=== PATIENT | male | born 1960 | race Caucasian/White ===

== ENCOUNTER 2017-06-11 21:49 | Emergency (ER) | payer BC ==
--- NOTE | 2017-06-11 22:25 | Emergency Department Record ---
History of Present Illness - General Chief Complaint: Laceration(s) Stated Complaint: LACERATION ON INDEX FINGER,RT HAND Time Seen by Provider: 06/11/17 22:19 Source: Patient Mode of Arrival: Ambulatory Limitations: No limitations - History of Present Illness Initial Commments: 57 yo male presents to ED with a CC of injury to the right index finger while using hedge trimmers approximately 7 hours ago. Patient reports that he initially bandaged the finger wound following injury, but upon performing a dressing change tonight, wound was noted to be continuosly bleeding. Patient denies anticoagulation use and denies health problems at his baseline. Onset/Timin -: Hour(s) Extremity Location: Right: Hand Place: Outdoors Context: Accidental, Sharp object use Associated Symptoms: None - Drainel Coma Scale Eye Response: (4) Open spontaneously Motor Response: (6) Obeys commands Verbal Response: (5) Oriented [place] Total: 15 - Related Data Hx Tetanus Toxoid Vaccination: Yes Patient Tetanus UTD (within 5 yrs): No Previous Rx's Medication Instructions Recorded Cephalexin [Keflex] 500 mg PO QID #40 cap 06/11/17 Allergies Allergy/AdvReac Type Severity Reaction Status Date / Time No Known Drug Allergies Allergy Verified 06/11/17 21:57 Travel Screening - Travel/Exposure Within Last 30 Days Have you traveled within the last 30 days?: No Review of Systems Constitutional: Denies: Chills, Fever, Malaise, Night sweats Eyes: Denies: Eye discharge, Eye pain ENT: Denies: Congestion, Ear pain, Epistaxis Respiratory: Denies: Cough, Dyspnea Cardiovascular: Denies: Chest pain, Dyspnea on exertion Endocrine: Denies: Fatigue, Heat or cold intolerance Gastrointestinal: Denies: Abdominal pain, Nausea, Vomiting Genitourinary: Denies: Incontinence, Retention Musculoskeletal: Denies: Arthralgia, Back pain, Gout, Joint swelling Skin: Reports: Other (finger tip laceration to the right index finger). Denies : Bruising, Change in color, Change in hair/nails Neurological: Denies: Abnormal gait, Confusion, Headache, Seizure Psychiatric: Denies: Anxiety Hematological/Lymphatic: Denies: Anemia, Blood Clots Past Medical History - SOCIAL HISTORY Smoking Status: Never smoker Alcohol Use: Occasional Drug Use: None - RESPIRATORY Hx Respiratory Disorders: No - CARDIOVASCULAR Hx Cardio Disorders: No - NEURO Hx Neuro Disorders: No - GI Hx GI Disorders: No - Hx Genitourinary Disorders: No - ENDOCRINE Hx Endocrine Disorders: No - MUSCULOSKELETAL Hx Musculoskeletal Disorders: No - PSYCH Hx Psych Problems: No - HEMATOLOGY/ONCOLOGY Hx Hematology/Oncology Disorders: No Family Medical History Any Significant Family History?: Yes Hx Cancer: Mother Hx Diabetes: Father, Mother Physical Exam - General General Appearance: Alert, Oriented x3, Cooperative, Mild distress Limitations: No limitations - Head Head exam: Atraumatic, Normocephalic, Normal inspection Head exam detail: negative: Abrasion, Contusion, Leo's sign, General tenderness, Hematoma, Laceration - Eye Eye exam: Normal appearance. negative: Conjunctival injection, Periorbital swelling, Periorbital tenderness, Scleral icterus - ENT Ear exam: negative: Auricular hematoma, Auricular trauma Nasal Exam: negative: Active bleeding, Discharge, Dried blood, Foreign body Mouth exam: negative: Drooling, Laceration, Muffled voice, Tongue elevation - Neck Neck exam: Normal inspection. negative: Meningismus, Tenderness - Respiratory Respiratory exam: Normal lung sounds bilaterally. negative: Rales, Respiratory distress, Rhonchi, Stridor - Cardiovascular Cardiovascular Exam: Regular rate, Normal rhythm, Normal heart sounds - GI/Abdominal GI/Abdominal exam: Soft. negative: Rebound, Rigid, Tenderness - Rectal Rectal exam: Deferred - exam: Deferred - Extremities Extremities exam: Tenderness, Other (Stellate laceration involving the tuft of the right index finger). negative: Calf tenderness, Pedal edema - Back Back exam: Denies: CVA tenderness (R), CVA tenderness (L) - Neurological Neurological exam: Alert, Normal gait, Oriented X3 - Psychiatric Psychiatric exam: Normal affect, Normal mood - Skin Skin exam: Normal color. negative: Abrasion Type of lesion: negative: abrasion Course Vital Signs 06/11/17 21:59 Temperature 98.2 F Pulse Rate [ 57 L Pulse Ox Probe] Respiratory 18 Rate Blood Pressure 147/105 [Left Arm] Pulse Ox 98 - Reevaluation(s) Reevaluation #1: 06/11/17 22:43 Procedure Note: Right index finger wound was anesthetized with 1% Lidocaine without epinephrine (3.0 mL) with good anesthesia, wound was cleaned with Shurclens solution and gently cleaned without any evidence for foreign bodies present. Stellate wound (total length 3.0 cm) was repaired with 4-0 prolene sutures, #3 interrupted, #1 corner stitch with good closure resulting in adequate cosmesis and hemostasis. Dressing was placed prior to discharge, Keflex was initiated prior to discharge, and patient's tetanus was updated prior to discharge. Risk of infection was discussed at length with the patient due to delay for closure as well as injury occurring outdoors with garden equipment, patient verbalizes understanding of these risk and will return for any redness, drainage, swelling, or increased pain symptoms immediately. 06/11/17 23:49 Disposition Disposition: Discharge Clinical Impression: Finger laceration Qualifiers: Encounter type: initial encounter Finger: index finger Damage to nail status: without damage Foreign body presence: without foreign body Laterality: right Qualified Code(s): S61.210A - Laceration without foreign body of right index finger without damage to nail, initial encounter Disposition: Home, Self-Care Condition: (2) Stable Instructions: Laceration (ED) Additional Instructions: Return to ED if your symptoms worsen or if you have any concerns. Sutures out in 10-14 days. Keflex as directed. Follow-up with your family doctor in 5-7 days as directed. Prescriptions: Cephalexin [Keflex] 500 mg PO QID #40 cap Forms: Patient Portal Access Time of Disposition: 22:25 Quality - Quality Measures Quality Measures: N/A - Blood Pressure Screening Does Patient Have Any of the Following: No Blood Pressure Classification: Hypertensive Reading Systolic Measurement: 138 Diastolic Measurement: 98 Screening for High Blood Pressure: < Pre-Hypertensive BP, F/U Documented > [ G8950] Pre-Hypertensive Follow-up Interventions: Referral to alternative/primary care provider.
[2017-06-11] MEDS ORDERED: Diph,Pert(Acell),Tet Vac 0.5 ML SYR IM ONE (22:26)
[2017-06-11] MEDS ORDERED: CEPHALEXIN 500 MG CAPSULE PO STA (22:26)
[2017-06-11] MEDS ORDERED: IBUPROFEN 600 MG TABLET PO ONE (23:09)
== END 2017-06-11 23:33 | disposition home or self-care (01) ==
LOC: ER 21:49
DX: S61.210A Laceration without foreign body of right index finger without damage to nail, initial encounter (principal); W27.1XXA Contact with garden tool, initial encounter; Y93.H2 Activity, gardening and landscaping; Y92.007 Garden or yard of unspecified non-institutional (private) residence as the place of occurrence of the external cause
CPT/HCPCS: 12002; 90715; 96372; 99283

== ENCOUNTER 2017-06-15 16:58 | Emergency (ER) | payer BC ==
--- NOTE | 2017-06-15 17:25 | Emergency Department Record ---
History of Present Illness - General Chief Complaint: Recheck - Other Stated Complaint: RECHECK Time Seen by Provider: 06/15/17 17:01 Source: Patient Mode of arrival: Ambulatory Limitations: No limitations - History of Present Illness Initial Comments: 57 yo male presents for a wound check. He works at the [employer]. He originally injured the index finger with hedge trimmers. He states on Monday he re-injured the finger at work and noted at night that a suture appeared broken and opened up. No fevers or pus. No drainage. Complaint: Wound re-check -: Days(s) (2) Initial Visit For: Laceration Returns Today for: Wound recheck Symptoms Since Prior Visit: Other Associated Symptoms: None Treatments Prior to Arrival: Dressings - Related Data Previous Rx's Medication Instructions Recorded Cephalexin [Keflex] 500 mg PO QID #40 cap 06/11/17 Allergies Allergy/AdvReac Type Severity Reaction Status Date / Time No Known Drug Allergies Allergy Verified 06/15/17 17:08 Travel Screening - Travel/Exposure Within Last 30 Days Have you traveled within the last 30 days?: No Review of Systems Constitutional: Denies: Chills, Fever, Malaise, Weakness Eyes: Denies: Eye discharge, Eye pain, Photophobia ENT: Denies: Congestion, Throat pain Respiratory: Denies: Cough Cardiovascular: Denies: Chest pain Endocrine: Denies: Fatigue Gastrointestinal: Denies: Abdominal pain, Diarrhea, Vomiting Genitourinary: Denies: Dysuria, Frequency, Hematuria Musculoskeletal: Denies: Arthralgia, Myalgia, Neck pain Skin: Reports: Other (Index wound opened). Denies: Bruising, Change in color Neurological: Denies: Headache Psychiatric: Denies: Anxiety Hematological/Lymphatic: Denies: Blood Clots, Easy bleeding, Easy bruising, Swollen glands Past Medical History - SOCIAL HISTORY Smoking Status: Never smoker Alcohol Use: None Drug Use: None - RESPIRATORY Hx Respiratory Disorders: No - CARDIOVASCULAR Hx Cardio Disorders: No - NEURO Hx Neuro Disorders: No - GI Hx GI Disorders: No - Hx Genitourinary Disorders: No - ENDOCRINE Hx Endocrine Disorders: No - MUSCULOSKELETAL Hx Musculoskeletal Disorders: No - PSYCH Hx Psych Problems: No - HEMATOLOGY/ONCOLOGY Hx Hematology/Oncology Disorders: No Family Medical History Any Significant Family History?: Yes Hx Cancer: Mother Hx Diabetes: Father, Mother Physical Exam - General General Appearance: Alert, Oriented x3, Cooperative - Head Head exam: Atraumatic - Eye Eye exam: Normal appearance - ENT ENT exam: Normal exam Ear exam: Normal external inspection Nasal Exam: Normal inspection - Neck Neck exam: Normal inspection - Cardiovascular Peripheral Pulses: 2+: Radial (R) - Extremities Image of Finger Tip: 1 - wound open with broken suture with exposed granulation tissue, no pus or signs of infection approximately 5mm x 1cm. wound margin edges do not reaproximate - Neurological Neurological exam: Alert, Oriented X3 - Psychiatric Psychiatric exam: Normal affect, Normal mood - Skin Skin exam: Dry, Intact, Normal color, Warm Course Vital Signs 06/15/17 17:08 Temperature 98.9 F Pulse Rate 63 Respiratory 20 Rate Blood Pressure 168/108 Pulse Ox 98 - Reevaluation(s) Reevaluation #1: The wound was clean gently No signs of infection With the exposed tissue size I will make a referral to hand surgery He is on antibiotics currently and will continue 06/15/17 17:24 Disposition Disposition: Discharge Clinical Impression: Wound dehiscence Finger laceration Qualifiers: Encounter type: initial encounter Finger: index finger Damage to nail status: with damage Foreign body presence: without foreign body Laterality: right Qualified Code(s): S61.310A - Laceration without foreign body of right index finger with damage to nail, initial encounter Disposition: Home, Self-Care Condition: (1) Good Instructions: Wound Dehiscence (ED) Additional Instructions: Call the number provided for hand surgery follow up Return to the ER if you have fever, pus or pain Continue to clean the area daily and apply the dressing to protect the exposed tissue Referrals: HENNY RAMON M.D. [MEDICAL DOCTOR] - Forms: Patient Portal Access Time of Disposition: 17:30 Quality - Quality Measures Quality Measures: N/A - Blood Pressure Screening Does Patient Have Any of the Following: No Blood Pressure Classification: Hypertensive Reading Systolic Measurement: 149 Diastolic Measurement: 94 Screening for High Blood Pressure: < Pre-Hypertensive BP, F/U Documented > [ G8950] Pre-Hypertensive Follow-up Interventions: Referral to alternative/primary care provider.
== END 2017-06-15 17:38 | disposition home or self-care (01) ==
LOC: ER 16:58
DX: T81.30XA Disruption of wound, unspecified, initial encounter (principal); S61.310A Laceration without foreign body of right index finger with damage to nail, initial encounter
CPT/HCPCS: 99282

== ENCOUNTER 2017-06-26 16:36 | Emergency (ER) | payer BC ==
--- NOTE | 2017-06-26 16:46 | Emergency Department Record ---
History of Present Illness - General Chief Complaint: Suture removal Stated Complaint: SUTURE REMOVAL Time Seen by Provider: 06/26/17 16:39 Source: Patient Mode of arrival: Ambulatory Limitations: No limitations - History of Present Illness Initial Comments: 57 yo male presents for suture removal and finger recheck for a finger tip injury. He initially had the tip of the wound open up after a suture broke. He saw a hand surgeon. No intervention was needed. He has healed without issues since. MD Complaint: Suture/staple removal, Wound re-check - Related Data Previous Rx's Medication Instructions Recorded Cephalexin [Keflex] 500 mg PO QID #40 cap 06/11/17 Allergies Allergy/AdvReac Type Severity Reaction Status Date / Time No Known Drug Allergies Allergy Verified 06/15/17 17:08 Review of Systems Constitutional: Denies: Chills, Fever, Weakness Eyes: Denies: Eye discharge ENT: Denies: Congestion, Throat pain Respiratory: Denies: Cough Cardiovascular: Denies: Chest pain, Palpitations, Syncope Endocrine: Denies: Fatigue Gastrointestinal: Denies: Abdominal pain, Diarrhea, Nausea, Vomiting Genitourinary: Denies: Dysuria, Frequency Musculoskeletal: Denies: Arthralgia, Back pain, Joint swelling, Myalgia Skin: Denies: Bruising, Change in color, Rash Neurological: Denies: Numbness, Weakness Psychiatric: Denies: Anxiety Hematological/Lymphatic: Denies: Blood Clots, Easy bleeding, Easy bruising, Swollen glands Past Medical History - SOCIAL HISTORY Smoking Status: Never smoker Drug Use: None - RESPIRATORY Hx Respiratory Disorders: No - CARDIOVASCULAR Hx Cardio Disorders: No - NEURO Hx Neuro Disorders: No - GI Hx GI Disorders: No - Hx Genitourinary Disorders: No - ENDOCRINE Hx Endocrine Disorders: No - MUSCULOSKELETAL Hx Musculoskeletal Disorders: No - PSYCH Hx Psych Problems: No - HEMATOLOGY/ONCOLOGY Hx Hematology/Oncology Disorders: No Family Medical History Hx Cancer: Mother Hx Diabetes: Father, Mother Physical Exam - General General Appearance: Alert, Oriented x3, Cooperative, No acute distress Limitations: No limitations - Head Head exam: Normal inspection - Eye Eye exam: Normal appearance, PERRL. negative: Conjunctival injection, Periorbital swelling - ENT ENT exam: Normal exam Ear exam: Normal external inspection Nasal Exam: Normal inspection - Neck Neck exam: Normal inspection - Cardiovascular Peripheral Pulses: 2+: Radial (R), Radial (L) - Rectal Rectal exam: Deferred - exam: Deferred - Extremities Image of Finger Tip: 1 - healing laceration, intact skin, no signs of infection or wound approximation issues - Neurological Neurological exam: Alert, Oriented X3 - Psychiatric Psychiatric exam: Normal affect, Normal mood. negative: Agitated, Anxious - Skin Skin exam: Dry, Intact, Normal color, Warm Course - Reevaluation(s) Reevaluation #1: The finger tip is healing without any signs of infection or dehiscence. The sutures were easily removed DC to follow up as needed 06/26/17 16:49 Disposition Disposition: Discharge Clinical Impression: Visit for suture removal Disposition: Home, Self-Care Condition: (1) Good Instructions: Stitches Removal (ED) Additional Instructions: Keep clean and protected Return if you have any concerns with the healing of your finger Forms: Patient Portal Access Time of Disposition: 16:47 Quality - Quality Measures Quality Measures: N/A - Blood Pressure Screening Does Patient Have Any of the Following: No Blood Pressure Classification: Pre-Hypertensive BP Reading Systolic Measurement: 149 Diastolic Measurement: 80 Screening for High Blood Pressure: < Pre-Hypertensive BP, F/U Documented > [ G8950] Pre-Hypertensive Follow-up Interventions: Referral to alternative/primary care provider.
== END 2017-06-26 16:53 | disposition home or self-care (01) ==
LOC: ER 16:36
DX: Z48.02 Encounter for removal of sutures (principal)

== ENCOUNTER 2019-01-21 08:19 | Day surgery (SDC) | payer BC ==
[2019-01-21] MEDS ORDERED: LIDOCAINE 2% MDV (20MG/ML) 20ML VIAL IV ONE (08:20)
[2019-01-21] MEDS ORDERED: PROPOFOL 10 MG/ML VIAL IV ONE (08:20)
--- NOTE | 2019-01-22 11:20 | Operative Note ---
DATE OF SURGERY: 01/21/2019 OPERATION: COLONOSCOPY to the cecum. INDICATION: High-risk colorectal cancer screening in this individual whose mother passed from colon cancer. This is the second examination. His last exam was in 2009. ANESTHESIA: Intravenous sedation was administered by the department of anesthesiology and included Diprivan titrated to effect. PROCEDURE: Following informed consent from this alert individual including a discussion of the risks and benefits of the procedure and an opportunity for the patient to ask questions, the patient was in the left lateral decubitus position. A digital rectal examination was performed. No abnormalities were noted. Following this, the Olympus [id number] video colonoscope was inserted into the rectum without resistance. The rectal mucosa had a normal appearance with normal folds and distensibility. The colonoscope was advanced up through the bowel to the level of the cecum without much difficulty. Throughout the bowel the mucosa appeared normal, the folds were normal, and the bowel was fairly well distensible. The cecum was defined by noting the appendiceal orifice and ileocecal valve. From the base of the cecum, the colonoscope was then slowly withdrawn. No changes were noted upon withdrawal. Overall, the preparation was good. Retroflexion in the rectum revealed small hypertrophied anal papillae. The endoscope was straightened and removed. The patient tolerated the procedure well and was returned to the recovery area in stable condition. IMPRESSION: 1. Hypertrophied anal papillae. 2. Otherwise unremarkable colonoscopy to the cecum. RECOMMENDATIONS: The patient was advised to have recheck colonoscopy in 5 years' time or sooner should problems arise. Followup will be with Dr. Hall as well. Further recommendations will be forthcoming pending As always, thank you for allowing me to participate in the care of your patient. CC: Andre Hall MD [facility]ITAL[facility]ie
== END 2019-01-21 10:38 | disposition home or self-care (01) ==
LOC: HOP 08:19
PROVIDERS: ATTEND Internal Medicine Gastroenterology
DX: Z12.11 Encounter for screening for malignant neoplasm of colon (principal); Z80.0 Family history of malignant neoplasm of digestive organs; K62.89 Other specified diseases of anus and rectum
CPT/HCPCS: 00812; G0105